=== PATIENT | male | born 1980 | race Caucasian/White ===

== ENCOUNTER 2022-10-24 08:25 | Outpatient (CLI) | payer BC, SELFPAY | END 2022-10-24 08:26 | disposition home or self-care (01) | LOC: NFLDREF 10-25 06:18 | PROVIDERS: Visit Provider Family Medicine | DX: Z00.00 Encounter for general adult medical examination without abnormal findings (principal); E10.9 Type 1 diabetes mellitus without complications; E78.5 Hyperlipidemia, unspecified; E66.3 Overweight; F41.9 Anxiety disorder, unspecified; F32.9 Major depressive disorder, single episode, unspecified | CPT/HCPCS: 80053; 80061; 82043; 82570 ==